=== PATIENT | male | born 1955 | race Caucasian/White ===

== ENCOUNTER 2018-01-26 10:15 | Emergency (ER) | payer OTHER ==
[~2018-01-26] VITALS: Ht 180.3 cm; Wt 142.5 kg
[2018-01-26 10:38] VITALS: TEMP 36.5; O2SAT 94; Ht 180.3 cm; Wt 142.5 kg
--- NOTE | 2018-01-26 10:50 | EMERGENCY ROOM VISIT NOTE ---
History Report prepared by Rachelle: En Valenzuela Under the Supervision of: Dr. Pierre Woods D.O. First contact with patient: 10:23 Chief Complaint: SEIZURE Stated Complaint: SEIZURE History of Present Illness The patient is a 62 year old female who presents to the Emergency Room with corrections officers from the [facility] following a seizure-like activity that occurred shortly prior to arrival. Per hospital nursing staff the patient experienced seizure-like activity this morning. He has a history of seizures and used to take Depakote. He has not taken this medication/had a seizure in roughly 3 years. One of the corrections officers at bedside state that he witness the end of the last seizure. He witnessed mild tonic clonic movement, but it "was not very violent." He notes the patient started to communicate normally with him 15-20 seconds after the seizure. There was no incontinence. The officers note that the patient got 1600 mg of Gabapentin this morning at 0830. He is currently experiencing a headache and some neck pain, but he denies hurting himself. Source of History: patient Onset: Shortly OFFICE MANAGER RECEPTIONIST Position: other (Neuro) Quality: other (Seizure) Associated Symptoms: + headache, + neck pain Review of Systems See HPI for pertinent positives & negatives. A total of 10 systems reviewed and were otherwise negative. Past Medical & Surgical Hx of Seizures Years ago Family History Non-contributory Social History Drug Use: none Marital Status: Housing Status: other ([facility]) Occupation Status: other ([facility]) Current/Historical Medications Scheduled Gabapentin (Neurontin), 1,600 MG PO QID Tramadol (Ultram), 100 MG PO Q6 Allergies Coded Allergies: No Known Allergies (Unverified , 01/26/18) Physical Exam Vital Signs Date Time Temp Pulse Resp B/P (MAP) Pulse Ox O2 Delivery O2 Flow Rate FiO2 01/26/18 12:28 76 20 154/93 100 01/26/18 11:48 72 20 150/89 95 01/26/18 10:38 94 Room Air 01/26/18 10:38 36.5 64 20 142/78 98 Room Air 01/26/18 10:27 68 Physical Exam GENERAL: Patient is awake, alert, and in no acute distress. Patient is resting comfortably and showing no signs of anxiety EYES: The conjunctivae are clear. The pupils are round and reactive. EARS, NOSE, MOUTH AND THROAT: The nose is without any evidence of any deformity. Mucous membranes are moist tongue is midline NECK: The neck is nontender and supple. RESPIRATORY: Normal respiratory effort is noted there is no evidence of wheezing rhonchi or rales CARDIOVASCULAR: Regular rate and rhythm noted there no murmurs rubs or gallops normal S1 normal S2 GASTROINTESTINAL: The abdomen is soft. Bowel sounds are present in all quadrants. Abdomen is nontender MUSCULOSKELETAL/EXTREMITIES: There is no evidence of gross deformity full range of motion is noted in the hips and shoulders SKIN: There is no obvious evidence of any rash. There are no petechiae, pallor or cyanosis noted. NEUROLOGIC: Patient is awake alert and oriented x3 strength is symmetric patellar reflexes are 2+ bilaterally Medical Decision & Procedures ER Provider Diagnostic Interpretation: Radiology results as stated below per my review and radiologist interpretation: CHEST ONE VIEW PORTABLE CLINICAL HISTORY: EVALUATE ALTERED MENTAL STATUS/WEAKNESS dyspnea COMPARISON STUDY: No previous studies for comparison. FINDINGS: Moderate cardiomegaly. Diaphragms smooth. Lungs are clear. IMPRESSION: Moderate cardiomegaly. Otherwise negative study. The above report was generated using voice recognition software. It may contain grammatical, syntax or spelling errors. Electronically signed by: Juan Ramon Palma M.D. 01/26/2018 10:54 AM Dictated Date/Time: 01/26/2018 10:[address] OF THE HEAD WITHOUT CONTRAST CLINICAL HISTORY: Seizure. COMPARISON STUDY: No previous studies for comparison. TECHNIQUE: Helical axial images of the head were obtained without IV contrast. Automated exposure control was utilized for the study. A dose lowering technique was utilized adhering to the principles of ALARA. FINDINGS: No acute intracranial hemorrhage, midline shift or mass effect is present. Ventricular system is unremarkable. Basilar cisterns are patent. There are no extra axial collections. Corbin-white differentiation is maintained. There are no findings to suggest acute dural sinus thrombosis or acute territorial infarct. There is no calvarial fracture. There is mild ethmoid sinus mucosal thickening and secretions. IMPRESSION: 1. No acute intracranial findings. 2. No calvarial fracture. Electronically signed by: Dominick Gibbs M.D. 01/26/2018 11:11 AM Dictated Date/Time: 01/26/2018 11:[address] OF THE CERVICAL SPINE WITHOUT CONTRAST CLINICAL HISTORY: Seizure. COMPARISON STUDY: No previous studies for comparison. TECHNIQUE: Helical axial images of the cervical spine were obtained without IV contrast. Sagittal and coronal reconstructions were viewed. A dose lowering technique was utilized adhering to the principles of ALARA. FINDINGS: Alignment of the cervical spine is anatomic. The craniocervical junction is intact. There is no acute fracture. There is mild multilevel disc space narrowing with moderate anterior osteophytosis. There is mild to moderate multilevel facet arthrosis. There is no prevertebral edema. There is no pneumothorax within the lung apices. IMPRESSION: No acute cervical spine fracture or subluxation. Electronically signed by: Dominick Gibbs M.D. 01/26/2018 11:13 AM Dictated Date/Time: 01/26/2018 11:11 AM Laboratory Results 01/26/18 10:25 Red Blood Count 5.18, Mean Corpuscular Volume 84.0, Mean Corpuscular Hemoglobin 29.2, Mean Corpuscular Hemoglobin Concent 34.7, Mean Platelet Volume 10.0, Neutrophils (%) (Auto) 77.0, Lymphocytes (%) (Auto) 15.5, Monocytes (%) (Auto) 5.7, Eosinophils (%) (Auto) 0.9, Basophils (%) (Auto) 0.2, Neutrophils # (Auto) 6.85, Lymphocytes # (Auto) 1.38, Monocytes # (Auto) 0.51, Eosinophils # (Auto) 0.08, Basophils # (Auto) 0.02 01/26/18 10:25 Test 01/26/18 10:25 White Blood Count 8.90 K/uL (4.8-10.8) Red Blood Count 5.18 M/uL (4.7-6.1) Hemoglobin 15.1 g/dL (14.0-18.0) Hematocrit 43.5 % (42-52) Mean Corpuscular Volume 84.0 fL (80-100) Mean Corpuscular Hemoglobin 29.2 pg (25-34) Mean Corpuscular Hemoglobin Concent 34.7 g/dl (32-36) Platelet Count 217 K/uL (130-400) Mean Platelet Volume 10.0 fL (7.4-10.4) Neutrophils (%) (Auto) 77.0 % Lymphocytes (%) (Auto) 15.5 % Monocytes (%) (Auto) 5.7 % Eosinophils (%) (Auto) 0.9 % Basophils (%) (Auto) 0.2 % Neutrophils # (Auto) 6.85 K/uL (1.4-6.5) Lymphocytes # (Auto) 1.38 K/uL (1.2-3.4) Monocytes # (Auto) 0.51 K/uL (0.11-0.59) Eosinophils # (Auto) 0.08 K/uL (0-0.5) Basophils # (Auto) 0.02 K/uL (0-0.2) RDW Standard Deviation 38.9 fL (36.4-46.3) RDW Coefficient of Variation 13.0 % (11.5-14.5) Immature Granulocyte % (Auto) 0.7 % Immature Granulocyte # (Auto) 0.06 K/uL (0.00-0.02) Prothrombin Time 11.0 SECONDS (9.0-12.0) Prothromb Time International Ratio 1.0 (0.9-1.1) Activated Partial Thromboplast Time 29.4 SECONDS (21.0-31.0) Partial Thromboplastin Ratio 1.1 Anion Gap 10.0 mmol/L (3-11) Est Creatinine Clear Calc Drug Dose 121.2 ml/min Estimated GFR () 104.7 Estimated GFR (Non- 90.4 BUN/Creatinine Ratio 12.2 (10-20) Calcium Level 9.7 mg/dl (8.5-10.1) Magnesium Level 2.0 mg/dl (1.8-2.4) Total Bilirubin 1.0 mg/dl (0.2-1) Direct Bilirubin 0.2 mg/dl (0-0.2) Aspartate Amino Transf (AST/SGOT) 22 U/L (15-37) Alanine Aminotransferase (ALT/SGPT) 20 U/L (12-78) Alkaline Phosphatase 106 U/L (45-117) Total Creatine Kinase 386 U/L (39-308) Creatine Kinase MB 5.0 ng/ml (0.5-3.6) Creatine Kinase MB Ratio 1.3 (0-3.0) Troponin I 0.024 ng/ml (0-0.045) Total Protein 7.8 gm/dl (6.4-8.2) Albumin 3.7 gm/dl (3.4-5.0) Thyroid Stimulating Hormone (TSH) 1.350 uIu/ml (0.300-4.500) Laboratory results per my review. ECG Per My Interpretation Indication: syncope (seizure) Rate (beats per minute): 64 Findings: other (NO PVCs, NO ST elevation/depression) Comparison ECG Date: no prior available ED Course 1024: The patient was evaluated in room B10. A complete history and physical examination were performed. 1156: Upon reevaluation, the patient is resting in bed. I discussed the results and treatment plan with him. He verbalized agreement of the treatment plan. The patient was discharged home. Medical Decision Differential diagnosis: Etiologies such as infection, hypoglycemia, electrolyte abnormalities, cardiac sources, intracerebral event, trauma, toxicologic, neurologic, as well as others were entertained. Nursing notes reviewed. Additional history is obtained from the guards. The patient is a 62-year-old male who presented to the emergency department after having an episode at the [facility]. It sounds of the patient may have had a syncopal episode but there was some possible reported seizure activity. The patient did not have a postictal phase. He did not bite his tongue or lose bowel or bladder continence. I discussed patient's laboratory and radiographic studies with him. He does take multiple medications which could lead to seizure either in misuse or abruptly stopping. At this time I have encouraged him to continue all medications as prescribed. I also encouraged him to follow-up with his primary care physician for further evaluation and possible echocardiogram Holter monitoring or other workup if seizure becomes more likely diagnosis. He was encouraged to return to the emergency department immediately symptoms change worsening the need arises. Medication Reconcilliation Current Medication List: was personally reviewed by me Blood Pressure Screening Patient's blood pressure: Elevated blood pressure Impression Primary Impression: Seizure Scribe Attestation The scribe's documentation has been prepared under my direction and personally reviewed by me in its entirety. I confirm that the note above accurately reflects all work, treatment, procedures, and medical decision making performed by me. Departure Information Dispostion Home / Self-Care Referrals No Doctor, Assigned (PCP) Forms HOME CARE DOCUMENTATION FORM, IMPORTANT VISIT INFORMATION Patient Instructions My [facility] Additional Instructions Continue all medications as prescribed. Follow-up with your family doctor for further evaluation. He may require other study such as an MRI of the brain or possibly an EEG to further evaluate the cause of the symptoms. Return to the emergency department immediately if symptoms change worsen or the need arises.
[2018-01-26 10:54] LABS: BASO % 0.2 %; BASO ABS # 0.02 K/uL (0-0.2); EOS % 0.9 %; EOS ABS # 0.08 K/uL (0-0.5); HEMATOCRIT 43.5 % (42-52); HEMOGLOBIN 15.1 g/dL (14.0-18.0); IG# 0.06 K/uL (0.00-0.02); LYMPH % 15.5 %; LYMPH ABS # 1.38 K/uL (1.2-3.4); MEAN CORPUSCULAR HEMOGLOBIN 29.2 pg (25-34); MEAN CORPUSCULAR HGB CONC 34.7 g/dl (32-36); MONO % 5.7 %; MONO ABS # 0.51 K/uL (0.11-0.59); NEUT ABS # 6.85 K/uL (1.4-6.5); PLATELET COUNT 217 K/uL (130-400); RED CELL DISTRIBUTION WIDTH SD 38.9 fL (36.4-46.3)
--- NOTE | 2018-01-26 10:56 | DIAGNOSTIC IMAGING REPORT ---
CHEST ONE VIEW PORTABLE CLINICAL HISTORY: EVALUATE ALTERED MENTAL STATUS/WEAKNESS dyspnea COMPARISON STUDY: No previous studies for comparison. FINDINGS: Moderate cardiomegaly. Diaphragms smooth. Lungs are clear. IMPRESSION: Moderate cardiomegaly. Otherwise negative study. The above report was generated using voice recognition software. It may contain grammatical, syntax or spelling errors. Electronically signed by: Juan Ramon Palma M.D. 01/26/2018 10:54 AM Dictated Date/Time: 01/26/2018 10:54 AM
[2018-01-26 11:07] LABS: PTT PATIENT 29.4 SECONDS (21.0-31.0)
--- NOTE | 2018-01-26 11:12 | DIAGNOSTIC IMAGING REPORT ---
CT OF THE HEAD WITHOUT CONTRAST CLINICAL HISTORY: Seizure. COMPARISON STUDY: No previous studies for comparison. TECHNIQUE: Helical axial images of the head were obtained without IV contrast. Automated exposure control was utilized for the study. A dose lowering technique was utilized adhering to the principles of ALARA. FINDINGS: No acute intracranial hemorrhage, midline shift or mass effect is present. Ventricular system is unremarkable. Basilar cisterns are patent. There are no extra axial collections. Corbin-white differentiation is maintained. There are no findings to suggest acute dural sinus thrombosis or acute territorial infarct. There is no calvarial fracture. There is mild ethmoid sinus mucosal thickening and secretions. IMPRESSION: 1. No acute intracranial findings. 2. No calvarial fracture. Electronically signed by: Dominick Gibbs M.D. 01/26/2018 11:11 AM Dictated Date/Time: 01/26/2018 11:09 AM
--- NOTE | 2018-01-26 11:14 | DIAGNOSTIC IMAGING REPORT ---
CT OF THE CERVICAL SPINE WITHOUT CONTRAST CLINICAL HISTORY: Seizure. COMPARISON STUDY: No previous studies for comparison. TECHNIQUE: Helical axial images of the cervical spine were obtained without IV contrast. Sagittal and coronal reconstructions were viewed. A dose lowering technique was utilized adhering to the principles of ALARA. FINDINGS: Alignment of the cervical spine is anatomic. The craniocervical junction is intact. There is no acute fracture. There is mild multilevel disc space narrowing with moderate anterior osteophytosis. There is mild to moderate multilevel facet arthrosis. There is no prevertebral edema. There is no pneumothorax within the lung apices. IMPRESSION: No acute cervical spine fracture or subluxation. Electronically signed by: Dominick Gibbs M.D. 01/26/2018 11:13 AM Dictated Date/Time: 01/26/2018 11:11 AM
[2018-01-26 11:16] LABS: ALBUMIN 3.7 gm/dl (3.4-5.0); CALCIUM 9.7 mg/dl (8.5-10.1); CREATININE 0.89 mg/dl (0.60-1.40); POTASSIUM 3.6 mmol/L (3.5-5.1)
[2018-01-26 11:26] LABS: TOTAL PROTEIN 7.8 gm/dl (6.4-8.2)
[2018-01-26] MEDS ORDERED: GABA800T PO (11:36)
[2018-01-26] MEDS ORDERED: TRAM-10 PO (11:36)
[2018-01-26 12:28] VITALS: BP 154/93; PULSE 76; O2SAT 100
== END 2018-01-26 12:29 | disposition home or self-care (01) ==
LOC: EDSEX 10:15 → EDBD 10:15 → C.EDB 10:17 → EDSEX 10:17 → C.EDB 12:29
DX: R56.9 Unspecified convulsions (principal); Z79.899 Other long term (current) drug therapy